=== PATIENT | male | born 1935 | race Caucasian/White ===

== ENCOUNTER → 2016-11-16 | Outpatient (CLI) | payer MEDICARE | LOC: OD 15:43 | PROVIDERS: ATTEND Family Medicine | DX: J44.1 Chronic obstructive pulmonary disease with (acute) exacerbation (principal) | CPT/HCPCS: 71020 ==

== ENCOUNTER → 2016-11-30 | Outpatient (CLI) | payer MEDICARE | LOC: OD 14:06 | PROVIDERS: ATTEND Family Medicine | DX: M54.5 Low back pain (principal); M54.6 Pain in thoracic spine | CPT/HCPCS: 72070; 72110 ==

== ENCOUNTER 2016-12-15 13:20 | Inpatient (IN) | payer MEDICARE ==
--- NOTE | 2016-12-15 13:32 | ER Document Report ---
ED Respiratory Problem - General Mode of Arrival: Medic Information source: Patient, Emergency Med Personnel TRAVEL OUTSIDE OF THE [place] IN LAST 30 DAYS: No - HPI Patient complains to provider of: Short of breath Duration: Worse/persistent Context: Hx COPD Short of Breath: Moderate <VITALIY MELLO - Last Filed: 12/15/16 14:04> <RAJWINDER DAUGHERTY - Last Filed: 12/15/16 17:38> - General Stated Complaint: SHORTNESS OF BREATH Time Seen by Provider: 12/15/16 13:31 Notes: Patient is an 81-year-old male who presents to the emergency department today with complaints of shortness of breath and a cough. EMS reports they were called out for failure to thrive. Patient reports that he lives with his however EMS states that the patient's two months ago. Patient denies any pain at this time. (VITALIY MELLO) - Related Data Allergies/Adverse Reactions: No Known Allergies Allergy (Unverified 12/15/16 14:38) Home Medications: Current Home Medications Albuterol Sulfate [Albuterol Sulfate 2.5mg/3 mL] 1 vial IH Q4 PRN 12/15/16 [ History] Digoxin [Lanoxin 0.125 mg Tablet] 0.125 mg PO DAILY 12/15/16 [History] Diltiazem HCl [Diltiazem ER] 120 mg PO QPM 12/15/16 [History] Ergocalciferol (Vitamin D2) [Vitamin D2] 50,000 unit PO Q7D 12/15/16 [History] Finasteride [Proscar 5 mg Tablet] 5 mg PO DAILY 12/15/16 [History] Hydrocodone/Acetaminophen [[place] 5-325 Tablet] 1 tab PO Q8HP PRN 12/15/16 [ History] Levothyroxine Sodium [Synthroid] 125 mcg PO DAILY 12/15/16 [History] Lisinopril [Prinivil 5 mg Tablet] 5 mg PO DAILY 12/15/16 [History] Magnesium Oxide [Magnesium] 400 mg PO DAILY 12/15/16 [History] Mirtazapine [Remeron 15 mg Tablet] 15 mg PO QHS 12/15/16 [History] Tamsulosin HCl [Flomax 0.4 mg Cap.sr] 0.4 mg PO DAILY 12/15/16 [History] Warfarin Sodium [Coumadin 4 mg Tablet] 4 mg PO QHS 12/15/16 [History] Past Medical History - General Information source: Patient - Social History Smoking Status: Former Smoker Cigarette use (# per day): No Family History: Reviewed & Not Pertinent Pulmonary Medical History: Reports: Hx COPD Surgical Hx: Negative <VITALIY MELLO - Last Filed: 12/15/16 14:04> Review of Systems - Review of Systems Constitutional: No symptoms reported EENT: No symptoms reported Cardiovascular: No symptoms reported Respiratory: See HPI, Cough, Short of breath Gastrointestinal: No symptoms reported Genitourinary: No symptoms reported Male Genitourinary: No symptoms reported Musculoskeletal: No symptoms reported Skin: No symptoms reported Hematologic/Lymphatic: No symptoms reported Neurological/Psychological: No symptoms reported -: Yes All other systems reviewed and negative <VITALIY MELLO - Last Filed: 12/15/16 14:04> Physical Exam - Vital signs Interpretation: Hypotensive, Tachycardic, Hypoxic - General General appearance: Alert, Other - cachectic In distress: Moderate - HEENT Head: Normocephalic, Atraumatic Eyes: Normal Conjunctiva: Normal Cornea: Normal Mouth/Lips: Normal Mucous membranes: Dry - Respiratory Respiratory status: Respiratory distress, Tachypnea Breath sounds: Decreased air movement, Rales - R base, Wheezing - b/l - Cardiovascular Rhythm: Regular, Tachycardia - Abdominal Inspection: Normal Tenderness: Nontender - Back Back: Normal - Extremities General upper extremity: Normal inspection, Normal ROM General lower extremity: Normal inspection, Normal ROM - Neurological Cognition: Normal Orientation: No: Disoriented to person Danny Coma Scale Eye Opening: Spontaneous Danny Coma Scale Verbal: Oriented Danny Coma Scale Motor: Obeys Commands [place] Coma Scale Total: 15 Motor strength normal: LUE, RUE, LLE, RLE - Skin Skin Temperature: Warm Skin Moisture: Dry Skin Color: Normal <RAJWINDER DAUGHERTY - Last Filed: 12/15/16 17:38> - Vital signs Vitals: Resp BP Pulse Ox 14 129/114 H 95 12/15/16 13:35 12/15/16 13:35 12/15/16 13:35 Course - Laboratory Result Diagrams: 12/15/16 13:45 12/15/16 13:45 <VITALIY MELLO - Last Filed: 12/15/16 14:04> - Laboratory Result Diagrams: 12/15/16 13:45 12/15/16 13:45 <RAJWINDER DAUGHERTY - Last Filed: 12/15/16 17:38> - Re-evaluation Re-evalutation: 12/15/16 Patient is an 81-year-old male who was brought in for difficulty breathing and not appearing well according to his daughter. Daughter states that they were just at her [id number] today. Patient's 2 months ago and he has been expressing not wanting to live anymore. Patient has not been eating or drinking. Patient has had a cough recently. Patient presents with tachycardia, hypotensive, and productive cough. Symptoms are consistent with pneumonia and dehydration. Patient has been fluid resuscitated and given a nebulizer for wheezing. Patient was discussed with the hospitalist service who will admit the patient. Daughter would like him to be placed. She would also like him to be comfort measures. Patient is in fair condition at the time of admission to a telemetry bed. Of note, patient's INR and PT came back elevated. Patient has been taking Coumadin regularly. Vitamin K has been ordered. No evidence of bleeding at this time. (RAJWINDER DAUGHERTY) - Vital Signs Vital signs: Temp Pulse Resp BP Pulse Ox 97.6 F 125 H 17 97/61 L 95 12/15/16 16:50 12/15/16 16:50 12/15/16 16:50 12/15/16 16:50 12/15/16 16:50 - Laboratory Laboratory results interpreted by me: 12/15/16 12/15/16 12/15/16 13:45 13:45 14:00 WBC 13.3 H RBC 4.13 L Hgb 12.8 L RDW 14.6 H Seg Neutrophils % 83.2 H Lymphocytes % 8.9 L Absolute Neutrophils 11.1 H PT INR VBG pH Carbon Dioxide 32 H BUN 53 H Creatinine 1.55 H Est GFR ( Amer) 52 L Est GFR (Non-Af Amer) 43 L Glucose 185 H Lactic Acid 2.8 H Calcium 13.3 H* Alkaline Phosphatase 137 H Total Protein 5.7 L Albumin 2.8 L 12/15/16 12/15/16 14:00 14:40 WBC RBC Hgb RDW Seg Neutrophils % Lymphocytes % Absolute Neutrophils PT 60.3 H* INR 6.63 H* VBG pH 7.46 H Carbon Dioxide BUN Creatinine Est GFR ( Amer) Est GFR (Non-Af Amer) Glucose Lactic Acid Calcium Alkaline Phosphatase Total Protein Albumin Critical Care Note - Critical Care Note Total time excluding time spent on procedures (mins): 60 - Duration and management of respiratory distress, hypotension, COPD exacerbation, supratherapeutic INR, coordination of admission, counseling of family <RAJWINDER DAUGHERTY - Last Filed: 12/15/16 17:38> Discharge <VITALIY MELLO - Last Filed: 12/15/16 14:04> - Discharge Admitting Provider: Hospitalist - [facility] Admitted: Telemetry <RAJWINDER DAUGHERTY - Last Filed: 12/15/16 17:38> - Discharge Clinical Impression: Hypoxia, Hypovolemia, Respiratory distress, SIRS (systemic inflammatory response syndrome), Supratherapeutic international normalized ratio (INR) Pneumonia Qualifiers: Pneumonia type: aspiration pneumonia Aspiration pneumonia type: unspecified Laterality: right Lung location: lower lobe of lung Qualified Code(s): J69.0 - Pneumonitis due to inhalation of food and vomit COPD (chronic obstructive pulmonary disease) Qualifiers: COPD type: COPD with acute exacerbation Qualified Code(s): J44.1 - Chronic obstructive pulmonary disease with (acute) exacerbation Condition: Fair Disposition: ADMITTED INPATIENT Scribe Attestation: 12/15/16 17:38 I personally performed the services described in the documentation, reviewed and edited the documentation which was dictated to the scribe in my presence, and it accurately records my words and actions. (RAJWINDER DAUGHERTY) Scribe Documentation - Scribe Written by Rae:: Rae Magaña, 12/15/16 1407 acting as scribe for :: Etelvina <VITALIY MELLO - Last Filed: 12/15/16 14:04>
[2016-12-15 14:01] LABS: ABSOLUTE LYMPHOCYTES (AUTO) 1.2 10^3/uL (0.5-4.7); ABSOLUTE NEUT (AUTO) 11.1 10^3/uL (1.7-8.2); BASOPHILS % (AUTO) 0.1 % (0-2); HEMATOCRIT 39.1 % (37.9-51.0); HEMOGLOBIN 12.8 g/dL (13.5-17.0); HGB HCT DIFFERENCE -0.7; LYMPHOCYTES % (AUTO) 8.9 % (13-45); MEAN CORPUSCULAR HEMOGLOBIN 30.9 pg (27.0-33.4); MEAN CORPUSCULAR HGB CONC 32.6 g/dL (32.0-36.0); MEAN CORPUSCULAR VOLUME 95 fl (80-97); MONOCYTES % (AUTO) 7.8 % (3-13); RED BLOOD COUNT 4.13 10^6/uL (4.35-5.55); RED CELL DISTRIBUTION WIDTH 14.6 % (11.5-14.0); SEGMENTED NEUTROPHILS % (AUTO) 83.2 % (42-78); WHITE BLOOD COUNT 13.3 10^3/uL (4.0-10.5)
[2016-12-15 14:16] LABS: ALANINE AMINOTRANSFERASE 31 U/L (21-72); ALBUMIN 2.8 g/dL (3.5-5.0); ALKALINE PHOSPHATASE 137 U/L (38-126); ANION GAP 7 (5-19); ASPARTATE AMINO TRANSFERASE 25 U/L (17-59); BILIRUBIN,DIRECT 0.4 mg/dL (0.0-0.4); BILIRUBIN,TOTAL 0.7 mg/dL (0.2-1.3); BLOOD UREA NITROGEN 53 mg/dL (7-20); CARBON DIOXIDE 32 mmol/L (22-30); CHLORIDE 99 mmol/L (98-107); CREATININE RESULT 1.55 mg/dL (0.52-1.25); GLUCOSE 185 mg/dL (75-110); POTASSIUM 4.5 mmol/L (3.6-5.0); SODIUM 138.2 mmol/L (137-145); TOTAL PROTEIN 5.7 g/dL (6.3-8.2)
[2016-12-15] MEDS ORDERED: IPRATROPIUM/ALBUTEROL 0.5-2.5 MG/3 ML AMPUL NEB ONE (14:20)
--- NOTE | 2016-12-15 14:20 | RADIOLOGY REPORT (SQ) ---
EXAM DESCRIPTION: CHEST SINGLE VIEW COMPLETED DATE/TIME: 12/15/2016 1:55 pm REASON FOR STUDY: hypotension, sob COMPARISON: 11/16/2016 EXAM PARAMETERS: NUMBER OF VIEWS: One view. TECHNIQUE: Single frontal radiographic view of the chest acquired. RADIATION DOSE: NA LIMITATIONS: None. FINDINGS: LUNGS AND PLEURA: The lungs are hyperexpanded. There are what appear to be chronic inters titial changes in the right lung base. A superimposed infiltrate cannot be ruled out in the right ba se. MEDIASTINUM AND HILAR STRUCTURES: No masses. Contour normal. HEART AND VASCULAR STRUCTURES: Heart normal in size. Normal vasculature. BONES: No osseous lesions are appreciated. HARDWARE: Rods are present in thoracolumbar spine. OTHER: No other significant finding. IMPRESSION: There are chronic lung changes. A pneumonia cannot be ruled out in the right lower lobe . TECHNICAL DOCUMENTATION: JOB ID: [id number]
[2016-12-15 14:33] LABS: VENOUS BLOOD BASE EXCESS 6.2 mmol/L; VENOUS BLOOD HCO3 30.8 mmol/L (20-32); VENOUS BLOOD PCO2 44.2 mmHg (35-63); VENOUS BLOOD PH 7.46 (7.30-7.42)
[2016-12-15 14:46] LABS: CALCIUM 13.3 mg/dL (8.4-10.2)
[2016-12-15] MEDS ORDERED: CEFEPIME 1 GM/D5W RTU 50 ML IV ONE (15:16)
[2016-12-15 15:29] LABS: PROTHROMBIN TIME 60.3 SEC (11.4-15.4)
[2016-12-15] MEDS ORDERED: PHYTONADIONE 5 MG TABLET PO ONE (15:30)
[2016-12-15] MEDS ORDERED: IPRATROPIUM/ALBUTEROL 0.5-2.5 MG/3 ML AMPUL NEB PRN (15:37)
[2016-12-15] MEDS ORDERED: ACETAMINOPHEN 325 MG TABLET PO PRN (15:37)
[2016-12-15] MEDS ORDERED: NORMAL SALINE 1000 ML 1,000 ML IV PRN (15:37)
[2016-12-15] MEDS: IPRATROPIUM/ALBUTEROL 0.5-2.5 MG/3 ML AMPUL NEB SCH ×2 (16:19→23:50)
--- NOTE | 2016-12-15 16:44 | PDOC H&P ---
History of Present Illness Admission Date/PCP: 12/15/16 16:03 YESY AGUILAR DO Patient complains of: Shortness of breath and worsening dyspnea History of Present Illness: CORY MILIAN is a 81 year old male, presents to [facility] emergency room via EMS. Patient has a past medical history according to his daughter of COPD on home oxygen therapy, atrial fibrillation, essential hypertension, severe caloric malnutrition, and failure to thrive. Much of the history is obtained from patient's daughter who is at his bedside. Patient has new history of confusion and incontinence over the last 2 weeks. Daughter states he came to live with her 2 months ago from [place] after her stepmother . Patient has stated numerous times he wishes to also. He has refused to eat and drinks very little. She reports at least a 20- 30 pound weight loss over the last 2 months. She has taken him to see Dr. Aguilar who is attempted Remeron therapy to increase his appetite. This had no positive effect at the present time. She states she began being incontinent over the last 1-2 weeks. He had refused prior attempts by family to have him hospitalized prior to the day. She states she has had a worsening productive cough and dyspnea over the last week. Medication list supplied by family have not been verified by pharmacy Past Medical History Cardiac Medical History: Reports: Atrial Fibrillation, Hyperlipidema - There is 9 to in the ICU and I mean it is truly any of her heart and to be, Hypertension , Heart Murmur Pulmonary Medical History: Reports: Chronic Obstructive Pulmonary Disease (COPD) EENT Medical History: Reports: None - Is not well unable to 99 independent Neurological Medical History: Reports: None Renal/ Medical History: Reports: None - They have been removed because the Malignancy Medical History: Reports: None - burn is trying to compensate for lactulose GI Medical History: Reports: Gastroesophageal Reflux Disease - is no cephalic little thing to the Musculoskeltal Medical History: Reports: None Skin Medical History: Reports: None Psychiatric Medical History: Reports: Dementia, Tobacco Dependency Hematology: Reports: Bleeding Tendencies Infectious Medical History: Reports: Other Social History Information Source: Relative Lives with: Family Smoking Status: Former Smoker Number of Years Smokin Last Time Smoked: 3 months ago Frequency of Alcohol Use: Rare Hx Recreational Drug Use: No Hx Prescription Drug Abuse: No - Advance Directive Resuscitation Status: Do Not Resuscitate Surrogate healthcare decision maker:: DaughterAmi [phone] Family History Family History: COPD, Hypertension Parental Family History Reviewed: Yes Children Family History Reviewed: Yes Sibling(s) Family History Reviewed.: Yes Medication/Allergy Allergies/Adverse Reactions: No Known Allergies Allergy (Unverified 12/15/16 14:38) Review of Systems ROS unobtainable: Due to mental status Physical Exam Vital Signs: Temp Pulse Resp BP Pulse Ox 20 109/40 L 96 12/15/16 14:01 12/15/16 14:01 12/15/16 14:01 General appearance: PRESENT: no acute distress, thin, well-developed Head exam: PRESENT: atraumatic, normocephalic Eye exam: PRESENT: conjunctiva pale, PERRLA Ear exam: PRESENT: normal external ear exam Mouth exam: PRESENT: dry mucosa, neck supple, tongue midline Teeth exam: PRESENT: edentulous Neck exam: PRESENT: full ROM Respiratory exam: PRESENT: crackles, symmetrical, unlabored - right base Cardiovascular exam: PRESENT: RRR. ABSENT: diastolic murmur, rubs, systolic murmur Pulses: PRESENT: normal dorsalis pedis pul Vascular exam: PRESENT: normal capillary refill GI/Abdominal exam: PRESENT: normal bowel sounds, soft. ABSENT: distended, guarding, mass, organolmegaly, rebound, tenderness Rectal exam: PRESENT: deferred Extremities exam: PRESENT: full ROM. ABSENT: calf tenderness, clubbing, pedal edema Neurological exam: PRESENT: altered, CN II-XII grossly intact. ABSENT: motor sensory deficit Psychiatric exam: PRESENT: flat affect Skin exam: PRESENT: abrasion, dry, warm, other - forearms with multiple echymotic spots Results Impressions: Chest X-Ray 12/15/16 13:31 IMPRESSION: There are chronic lung changes. A pneumonia cannot be ruled out in the right lower lobe. Assessment & Plan - Diagnosis (1) SIRS (systemic inflammatory response syndrome) Is this a current diagnosis for this admission?: YesPlan: Patient with fever, hypotension, tachypnea, and lactate of 2.8. Hypotension resolved with IV fluid bolus. Patient with right lower lobe pneumonia (2) Acute and chronic respiratory failure with hypoxia Is this a current diagnosis for this admission?: YesPlan: Patient with oxygen SPO2 of 87% on 2l/min, increased to 4l/min with SPO2 95%. No hypercapnea noted on VBG. Will treat with IV antibiotics, nebulizer treatments and steroid (3) LISA (acute kidney injury) Is this a current diagnosis for this admission?: YesPlan: Acute kidney injury most likely secondary to dehydration and prerenal hypovolemia. Patient was given IV fluid bolus by the ED physician continue with IV hydration. (4) Atrial fibrillation Qualifiers: Atrial fibrillation type: paroxysmal Qualified Code(s): I48.0 - Paroxysmal atrial fibrillation Is this a current diagnosis for this admission?: YesPlan: Patient with an INR of 6.4 at the present time on warfarin. He was given vitamin K p.o. by the ED physician. We will continue to hold Coumadin and allow his INR to drift downward. He presently is normal sinus rhythm 70s-80s. (5) Severe protein-calorie malnutrition Is this a current diagnosis for this admission?: YesPlan: Regular diet with protein supplements. Patient has refused to eat despite appetite stimulants by PCP. (6) Pneumonia Qualifiers: Aspiration pneumonia type: unspecified Laterality: right Lung location: lower lobe of lung Is this a current diagnosis for this admission?: YesPlan: Broad spectrum antibiotics pending culture results (7) COPD (chronic obstructive pulmonary disease) Qualifiers: COPD type: COPD with acute exacerbation Qualified Code(s): J44.1 - Chronic obstructive pulmonary disease with (acute) exacerbation Is this a current diagnosis for this admission?: YesPlan: Nebulizer, IV steroids and abx (8) Goals of care, counseling/discussion Is this a current diagnosis for this admission?: YesPlan: Discussed with daughter and son in law goals of care for patient. They wish DNR , possible comfort care should his condition decline further and assisted placement - Time Time Spent: 50 to 70 Minutes Critical Time spent with patient: 25-34 minutes Medications reviewed and adjusted accordingly: Yes Anticipated discharge: SNF
[2016-12-15] MEDS ORDERED: CEFEPIME 2 GM/D5W RTU 2 GM/50 ML RTUPB IV ONE (17:00)
[2016-12-15] MEDS: LEVOFLOXACIN 750 MG/D5W RTU 750 MG/150 ML RTUPB IV SCH (17:31)
[2016-12-15 18:26] LABS: APPEARANCE,URINE SLIGHTLY-CLOUDY; BILIRUBIN,URINE NEGATIVE (NEGATIVE); GLUCOSE, URINE NEGATIVE (NEGATIVE); KETONES,URINE NEGATIVE (NEGATIVE); LEUKOCYTE ESTERASE,URINE MODERATE (NEGATIVE); NITRITE,URINE NEGATIVE (NEGATIVE); PROTEIN,URINE NEGATIVE (NEGATIVE); UROBILINOGEN,URINE NEGATIVE mg/dL (<2.0)
--- NOTE | 2016-12-15 18:34 | EKG REPORT ---
SEVERITY:- ABNORMAL ECG - ATRIAL FIBRILLATION BORDERLINE RIGHT AXIS DEVIATION DIFFUSE NONSPECIFIC ST-T CHANGES- LEADS : Confirmed by: Naun Mandujano MD 15-Dec-2016 18:32:51
[2016-12-15] MEDS: GUAIFENESIN 600 MG TABLET.SA PO SCH (21:32)
[2016-12-15] MEDS: FAMOTIDINE 20 MG TABLET PO SCH (21:32)
[2016-12-16 05:36] LABS: HEMATOCRIT 31.4 % (37.9-51.0); HGB HCT DIFFERENCE 0.1; MEAN CORPUSCULAR HEMOGLOBIN 31.4 pg (27.0-33.4); MEAN CORPUSCULAR HGB CONC 33.4 g/dL (32.0-36.0); MEAN CORPUSCULAR VOLUME 94 fl (80-97); RED BLOOD COUNT 3.34 10^6/uL (4.35-5.55); RED CELL DISTRIBUTION WIDTH 14.3 % (11.5-14.0); WHITE BLOOD COUNT 13.9 10^3/uL (4.0-10.5)
[2016-12-16] MEDS ORDERED: CEFEPIME 2 GM/D5W RTU 2 GM/50 ML RTUPB IV ONE (05:47)
[2016-12-16 05:54] LABS: HEMOGLOBIN 10.5 g/dL (13.5-17.0)
[2016-12-16] MEDS ORDERED: CEFEPIME 2 GM/D5W RTU 2 GM/50 ML RTUPB IV SCH (06:00)
[2016-12-16 06:05] LABS: ANION GAP 5 (5-19); BLOOD UREA NITROGEN 48 mg/dL (7-20); CARBON DIOXIDE 27 mmol/L (22-30); CHLORIDE 102 mmol/L (98-107); GLUCOSE 110 mg/dL (75-110); POTASSIUM 4.4 mmol/L (3.6-5.0); SODIUM 134.4 mmol/L (137-145)
[2016-12-16 06:16] LABS: CALCIUM 12.7 mg/dL (8.4-10.2)
[2016-12-16] MEDS ORDERED: HYDROCODONE/ACETAMINOPHEN 5-325 MG TABLET PO PRN (07:00)
[2016-12-16] MEDS: IPRATROPIUM/ALBUTEROL 0.5-2.5 MG/3 ML AMPUL NEB SCH ×3 (08:13→23:31)
[2016-12-16] MEDS ORDERED: CALCITONIN,SALMON,SYNTHETIC 400 UNIT/2 ML VIAL IM ONE (09:00)
[2016-12-16] MEDS ORDERED: (PENDING PHARMACY ID) (Magnesium Oxide [Magnesium] 400 MG) PO SCH (10:00)
[2016-12-16] MEDS ORDERED: LEVOFLOXACIN 500 MG/D5W RTU 100 ML IV SCH (10:00)
[2016-12-16] MEDS ORDERED: (PENDING PHARMACY ID) (Levothyroxine Sodium [Synthroid] 125 MCG) PO SCH (10:00)
[2016-12-16] MEDS: MEGESTROL ACETATE SUSP 400 MG/10 ML UDCUP PO SCH (11:38)
[2016-12-16] MEDS: TAMSULOSIN HCL 0.4 MG CAP.SR.24H PO SCH (11:38)
[2016-12-16] MEDS: FAMOTIDINE 20 MG TABLET PO SCH ×2 (11:38→21:16)
[2016-12-16] MEDS: LEVOTHYROXINE SODIUM 0.1 MG TABLET PO SCH (11:38)
[2016-12-16] MEDS: MAGNESIUM OXIDE 400 MG TABLET PO SCH (11:38)
[2016-12-16] MEDS: FINASTERIDE 5 MG TABLET PO SCH (11:38)
[2016-12-16] MEDS: DIGOXIN 0.125 MG TABLET PO SCH (11:38)
[2016-12-16] MEDS: LEVOTHYROXINE SODIUM 0.025 MG TABLET PO SCH (11:38)
[2016-12-16] MEDS: LISINOPRIL 5 MG TABLET PO SCH (11:38)
[2016-12-16] MEDS: GUAIFENESIN 600 MG TABLET.SA PO SCH ×2 (11:38→21:16)
--- NOTE | 2016-12-16 16:21 | PDOC PROGRESS REPORT ---
Subjective Progress Note for:: 12/16/16 Subjective:: Patient is seen on morning rounds. He is more awake and alert this morning. He is able to answer questions appropriately. He is not short of breath at rest. He has some dyspnea with exertion. He has not improved cough. He denies chest pain, dizziness or dyspnea. Denies any nausea, vomiting or diarrhea. He states he has no dentures for him to eat because of this. He was noted to have problems swallowing by nursing. He was evaluated by speech therapy for postpharyngeal aspiration of all substances. He denies any significant arthralgias or myalgias Physical Exam Vital Signs: Temp Pulse Resp BP Pulse Ox 97.5 F 64 16 87/65 L 99 12/16/16 11:53 12/16/16 14:00 12/16/16 11:53 12/16/16 11:53 12/16/16 11:53 Intake & Output 12/15/16 12/16/16 12/17/16 06:59 06:59 06:59 Intake Total 2079 Balance 2079 Weight 50 kg General appearance: PRESENT: no acute distress, thin, well-developed Head exam: PRESENT: atraumatic, normocephalic Eye exam: PRESENT: conjunctiva pale, PERRLA Ear exam: PRESENT: normal external ear exam Mouth exam: PRESENT: moist, neck supple, tongue midline Teeth exam: PRESENT: edentulous Neck exam: ABSENT: carotid bruit, JVD, lymphadenopathy, thyromegaly Respiratory exam: PRESENT: crackles, decreased breath sounds - right base, symmetrical, unlabored. ABSENT: rales, rhonchi, wheezes Cardiovascular exam: PRESENT: RRR. ABSENT: diastolic murmur, rubs, systolic murmur Pulses: PRESENT: normal dorsalis pedis pul Vascular exam: PRESENT: normal capillary refill GI/Abdominal exam: PRESENT: normal bowel sounds, soft. ABSENT: distended, guarding, mass, organolmegaly, rebound, tenderness Rectal exam: PRESENT: deferred Extremities exam: PRESENT: full ROM. ABSENT: calf tenderness, clubbing, pedal edema Musculoskeletal exam: PRESENT: full ROM, normal inspection Neurological exam: PRESENT: alert, awake, oriented to person, oriented to place , oriented to time, oriented to situation, CN II-XII grossly intact. ABSENT: motor sensory deficit Psychiatric exam: PRESENT: flat affect Skin exam: PRESENT: dry, intact, warm. ABSENT: cyanosis, rash Results Laboratory Results: 12/16/16 04:30 12/16/16 04:30 12/15/16 12/15/16 12/16/16 17:35 18:32 04:30 WBC 13.9 H RBC 3.34 L Hgb 10.5 L D Hct 31.4 L MCV 94 MCH 31.4 MCHC 33.4 RDW 14.3 H Plt Count 226 Sodium Potassium Chloride Carbon Dioxide Anion Gap BUN Creatinine Est GFR ( Amer) Est GFR (Non-Af Amer) Glucose Lactic Acid 2.7 H Calcium Urine Color YELLOW Urine Appearance SLIGHTLY-CLOUDY Urine pH 6.0 Ur Specific [place] 1.010 Urine Protein NEGATIVE Urine Glucose (UA) NEGATIVE Urine Ketones NEGATIVE Urine Blood NEGATIVE Urine Nitrite NEGATIVE Ur Leukocyte Esterase MODERATE H Urine WBC (Auto) 64 Urine RBC (Auto) 2 12/16/16 04:30 WBC RBC Hgb Hct MCV MCH MCHC RDW Plt Count Sodium 134.4 L Potassium 4.4 Chloride 102 Carbon Dioxide 27 Anion Gap 5 BUN 48 H Creatinine 1.30 H Est GFR ( Amer) > 60 Est GFR (Non-Af Amer) 53 L Glucose 110 Lactic Acid Calcium 12.7 H* Urine Color Urine Appearance Urine pH Ur Specific [place] Urine Protein Urine Glucose (UA) Urine Ketones Urine Blood Urine Nitrite Ur Leukocyte Esterase Urine WBC (Auto) Urine RBC (Auto) Impressions: Chest X-Ray 12/15/16 13:31 IMPRESSION: There are chronic lung changes. A pneumonia cannot be ruled out in the right lower lobe. Assessment & Plan - Diagnosis (1) SIRS (systemic inflammatory response syndrome) Is this a current diagnosis for this admission?: YesPlan: Hypotension and tachycardia have resolved. Patient with right lower lobe pneumonia (2) Acute and chronic respiratory failure with hypoxia Is this a current diagnosis for this admission?: YesPlan: Patient with oxygen SPO2 of 87% on 2l/min, increased to 4l/min with SPO2 95%. No hypercapnea noted on VBG. Will treat with IV antibiotics, nebulizer treatments and steroid (3) LISA (acute kidney injury) Is this a current diagnosis for this admission?: YesPlan: Acute kidney injury most likely secondary to dehydration and prerenal hypovolemia. Patient was given IV fluid bolus by the ED physician continue with IV hydration. (4) Atrial fibrillation Qualifiers: Atrial fibrillation type: paroxysmal Qualified Code(s): I48.0 - Paroxysmal atrial fibrillation Is this a current diagnosis for this admission?: YesPlan: Patient with an INR of 6.4 at the present time on warfarin. He was given vitamin K p.o. by the ED physician. We will continue to hold Coumadin and allow his INR to drift downward. He presently is normal sinus rhythm 70s-80s. (5) Severe protein-calorie malnutrition Is this a current diagnosis for this admission?: YesPlan: Regular diet with protein supplements. Patient has refused to eat despite appetite stimulants by PCP. (6) Pneumonia Qualifiers: Pneumonia type: aspiration pneumonia Aspiration pneumonia type: unspecified Laterality: right Lung location: lower lobe of lung Qualified Code(s): J69.0 - Pneumonitis due to inhalation of food and vomit Is this a current diagnosis for this admission?: YesPlan: Broad spectrum antibiotics pending culture results (7) COPD (chronic obstructive pulmonary disease) Qualifiers: COPD type: COPD with acute exacerbation Qualified Code(s): J44.1 - Chronic obstructive pulmonary disease with (acute) exacerbation Is this a current diagnosis for this admission?: YesPlan: Nebulizer, IV steroids and abx (8) Goals of care, counseling/discussion Is this a current diagnosis for this admission?: YesPlan: Discussed with daughter and son in law goals of care for patient. They wish DNR , possible comfort care should his condition decline further and fci placement (9) Hypercalcemia Is this a current diagnosis for this admission?: Yes - Time Time Spent with patient: 25-34 minutes Critical Time spent with patient: 15-24 minutes Medications reviewed and adjusted accordingly: Yes Anticipated discharge: SNF
[2016-12-16] MEDS ORDERED: (PENDING PHARMACY ID) (Diltiazem Hcl [Diltiazem 24hr Er] 120 MG) PO SCH (18:00)
[2016-12-16] MEDS: DILTIAZEM HCL 120 MG CAP.SR.24H PO SCH (18:02)
[2016-12-16] MEDS: CEFEPIME HCL 2 GM in DEXTROSE 5%-WATER 50 ML IV SCH (18:05)
[2016-12-16] MEDS ORDERED: VANCOMYCIN HCL 0 MG in DEXTROSE 5%-WATER 250 ML IV NR (21:00)
[2016-12-16] MEDS: NORMAL SALINE 1000 ML 1,000 ML IV SCH ×2 (21:16→22:19)
[2016-12-16] MEDS: MIRTAZAPINE 15 MG TABLET PO SCH (21:16)
[2016-12-16] MEDS ORDERED: VANCOMYCIN HCL 750 MG in DEXTROSE 5%-WATER 250 ML IV ONE (22:00)
[2016-12-17] MEDS: NORMAL SALINE 1000 ML 1,000 ML IV SCH (00:26)
[2016-12-17] MEDS: CEFEPIME HCL 2 GM in DEXTROSE 5%-WATER 50 ML IV SCH ×2 (06:24→17:19)
[2016-12-17] MEDS ORDERED: VANCOMYCIN HCL 0 MG in DEXTROSE 5%-WATER 250 ML IV NR (07:45)
[2016-12-17] MEDS: IPRATROPIUM/ALBUTEROL 0.5-2.5 MG/3 ML AMPUL NEB SCH ×3 (08:40→23:39)
[2016-12-17] MEDS: MEGESTROL ACETATE SUSP 400 MG/10 ML UDCUP PO SCH (09:15)
[2016-12-17] MEDS: DIGOXIN 0.125 MG TABLET PO SCH (09:16)
[2016-12-17] MEDS: FAMOTIDINE 20 MG TABLET PO SCH ×2 (09:17→22:23)
[2016-12-17] MEDS: FINASTERIDE 5 MG TABLET PO SCH (09:17)
[2016-12-17] MEDS: GUAIFENESIN 600 MG TABLET.SA PO SCH ×2 (09:17→22:23)
[2016-12-17] MEDS: LEVOTHYROXINE SODIUM 0.1 MG TABLET PO SCH (09:17)
[2016-12-17] MEDS: LEVOTHYROXINE SODIUM 0.025 MG TABLET PO SCH (09:17)
[2016-12-17] MEDS: MAGNESIUM OXIDE 400 MG TABLET PO SCH (09:18)
[2016-12-17] MEDS: LISINOPRIL 5 MG TABLET PO SCH (09:18)
[2016-12-17] MEDS: TAMSULOSIN HCL 0.4 MG CAP.SR.24H PO SCH (09:18)
[2016-12-17] MEDS ORDERED: NORMAL SALINE 1000 ML 1,000 ML IV PRN (10:08)
[2016-12-17 10:11] LABS: PROTHROMBIN TIME 26.4 SEC (11.4-15.4)
[2016-12-17] MEDS ORDERED: FUROSEMIDE INJ/PF 20 MG/2 ML SDV IV ONE (11:00)
--- NOTE | 2016-12-17 12:59 | PDOC PROGRESS REPORT ---
Subjective Progress Note for:: 12/17/16 Subjective:: Patient is seen on morning rounds. He is more awake and alert this morning. He is able to answer questions appropriately. He is not short of breath at rest. He has some dyspnea with exertion. He has not improved cough. He denies chest pain, dizziness or dyspnea. Denies any nausea, vomiting or diarrhea. He states he has no dentures for him to eat because of this. He was noted to have problems swallowing by nursing. He was evaluated by speech therapy for postpharyngeal aspiration of all substances. He denies any significant arthralgias or myalgias Physical Exam Vital Signs: Temp Pulse Resp BP Pulse Ox 97.3 F 67 18 124/89 H 97 12/17/16 08:00 12/17/16 08:40 12/17/16 08:40 12/17/16 08:00 12/17/16 08:40 Intake & Output 12/16/16 12/17/16 12/18/16 06:59 06:59 06:59 Intake Total 2079 6870 Balance 2079 6870 Weight 50 kg 55.4 kg General appearance: PRESENT: no acute distress, thin, well-developed Head exam: PRESENT: atraumatic, normocephalic Eye exam: PRESENT: conjunctiva pale Ear exam: PRESENT: normal external ear exam Mouth exam: PRESENT: moist, tongue midline Neck exam: PRESENT: JVD Respiratory exam: PRESENT: crackles - bilaterally, rhonchi, symmetrical, tachypnea Cardiovascular exam: PRESENT: RRR. ABSENT: diastolic murmur, rubs, systolic murmur Pulses: PRESENT: normal carotid pulses, normal radial pulses GI/Abdominal exam: PRESENT: diminished bowel sounds Rectal exam: PRESENT: deferred Extremities exam: PRESENT: full ROM. ABSENT: calf tenderness, clubbing, pedal edema Neurological exam: PRESENT: alert, altered, oriented to person, CN II-XII grossly intact Psychiatric exam: PRESENT: anxious Skin exam: PRESENT: dry, intact, warm. ABSENT: cyanosis, rash Results Laboratory Results: 12/16/16 04:30 12/16/16 04:30 12/15/16 17:35 Catheterized Urine Urine Culture - Final NO GROWTH 2 DAYS Impressions: Chest X-Ray 12/15/16 13:31 IMPRESSION: There are chronic lung changes. A pneumonia cannot be ruled out in the right lower lobe. Assessment & Plan - Diagnosis (1) SIRS (systemic inflammatory response syndrome) Is this a current diagnosis for this admission?: YesPlan: Hypotension and tachycardia have resolved. Patient with right lower lobe pneumonia. 2 out of 2 blood cultures positive for Gm positive cocci. Vancomycin added (2) Fluid volume excess Qualifiers: Hypervolemia type: other Qualified Code(s): E87.79 - Other fluid overload Is this a current diagnosis for this admission?: YesPlan: Patient given fluid bolus overnight due to positive blood cultures, no with mild respiratory distress due to fluid volume overload, Fluid decreased IV lasix 40 mg given with improvement (3) Acute and chronic respiratory failure with hypoxia Is this a current diagnosis for this admission?: YesPlan: Patient with oxygen SPO2 of 87% on 2l/min, increased to 4l/min with SPO2 95%. No hypercapnea noted on VBG. Will treat with IV antibiotics, nebulizer treatments and steroid (4) LISA (acute kidney injury) Is this a current diagnosis for this admission?: YesPlan: Acute kidney injury most likely secondary to dehydration and prerenal hypovolemia. Patient was given IV fluid bolus by the ED physician continue with IV hydration. (5) Atrial fibrillation Qualifiers: Atrial fibrillation type: paroxysmal Qualified Code(s): I48.0 - Paroxysmal atrial fibrillation Is this a current diagnosis for this admission?: YesPlan: Patient with an INR of 6.4 at the present time on warfarin. He was given vitamin K p.o. by the ED physician. We will continue to hold Coumadin and allow his INR to drift downward. He presently is normal sinus rhythm 70s-80s. (6) Severe protein-calorie malnutrition Is this a current diagnosis for this admission?: YesPlan: Regular diet with protein supplements. Patient has refused to eat despite appetite stimulants by PCP. (7) Pneumonia Qualifiers: Pneumonia type: aspiration pneumonia Aspiration pneumonia type: unspecified Laterality: right Lung location: lower lobe of lung Qualified Code(s): J69.0 - Pneumonitis due to inhalation of food and vomit Is this a current diagnosis for this admission?: YesPlan: Broad spectrum antibiotics. Blood cultures 2 out of 2 sets positive for gram positive cocci (8) COPD (chronic obstructive pulmonary disease) Qualifiers: COPD type: COPD with acute exacerbation Qualified Code(s): J44.1 - Chronic obstructive pulmonary disease with (acute) exacerbation Is this a current diagnosis for this admission?: YesPlan: Nebulizer, IV steroids and abx (9) Goals of care, counseling/discussion Is this a current diagnosis for this admission?: YesPlan: Discussed with daughter and son in law goals of care for patient. They wish DNR , possible comfort care should his condition decline further and parts counterman placement (10) Hypercalcemia Is this a current diagnosis for this admission?: Yes - Time Time Spent with patient: 25-34 minutes Critical Time spent with patient: 15-24 minutes Medications reviewed and adjusted accordingly: Yes
[2016-12-17] MEDS: DILTIAZEM HCL 120 MG CAP.SR.24H PO SCH (17:18)
[2016-12-17] MEDS: LEVOFLOXACIN 750 MG/D5W RTU 750 MG/150 ML RTUPB IV SCH (17:20)
[2016-12-17] MEDS ORDERED: VANCOMYCIN HCL 500 MG in DEXTROSE 5%-WATER 100 ML IV SCH (22:00)
[2016-12-17] MEDS: MIRTAZAPINE 15 MG TABLET PO SCH (22:23)
[2016-12-17] MEDS: VANCOMYCIN HCL 750 MG in DEXTROSE 5%-WATER 250 ML IV SCH (22:23)
[2016-12-18 05:16] LABS: HEMATOCRIT 33.6 % (37.9-51.0); HGB HCT DIFFERENCE -0.6; MEAN CORPUSCULAR HEMOGLOBIN 31.2 pg (27.0-33.4); MEAN CORPUSCULAR HGB CONC 32.8 g/dL (32.0-36.0); MEAN CORPUSCULAR VOLUME 95 fl (80-97); RED BLOOD COUNT 3.52 10^6/uL (4.35-5.55); WHITE BLOOD COUNT 18.1 10^3/uL (4.0-10.5)
[2016-12-18] MEDS: CEFEPIME HCL 2 GM in DEXTROSE 5%-WATER 50 ML IV SCH ×2 (05:22→20:17)
[2016-12-18 05:29] LABS: ANION GAP 8 (5-19); BLOOD UREA NITROGEN 42 mg/dL (7-20); CARBON DIOXIDE 24 mmol/L (22-30); CHLORIDE 104 mmol/L (98-107); CREATININE RESULT 1.13 mg/dL (0.52-1.25); GLUCOSE 73 mg/dL (75-110); POTASSIUM 3.2 mmol/L (3.6-5.0); SODIUM 136.4 mmol/L (137-145)
[2016-12-18 05:41] LABS: BASOPHILS % (MANUAL) 0 % (0-2); EOSINOPHILS % (MANUAL) 0 % (0-6); LYMPHOCYTES % (MANUAL) 4 % (13-45); TOTAL CELLS COUNTED 100
[2016-12-18 05:43] LABS: CALCIUM 12.5 mg/dL (8.4-10.2)
[2016-12-18 05:44] LABS: ANISOCYTOSIS SLIGHT; OVALOCYTES SLIGHT; TOXIC GRANULATION 1+
[2016-12-18] MEDS: IPRATROPIUM/ALBUTEROL 0.5-2.5 MG/3 ML AMPUL NEB SCH ×3 (08:22→23:52)
[2016-12-18] MEDS ORDERED: POTASSIUM CHLORIDE 10 MEQ TABLET.SA PO ONE (08:30)
[2016-12-18] MEDS ORDERED: CALCITONIN,SALMON,SYNTHETIC 400 UNIT/2 ML VIAL IM ONE (08:30)
[2016-12-18 08:50] LABS: PROTHROMBIN TIME 24.3 SEC (11.4-15.4)
[2016-12-18] MEDS: HALOPERIDOL LACTATE INJ 5 MG/1 ML VIAL IV PRN ×2 (08:59→15:23)
[2016-12-18] MEDS: TAMSULOSIN HCL 0.4 MG CAP.SR.24H PO SCH (09:01)
[2016-12-18] MEDS: RISPERIDONE 1 MG TABLET PO SCH ×2 (09:02→17:47)
[2016-12-18] MEDS: DIGOXIN 0.125 MG TABLET PO SCH (09:02)
[2016-12-18] MEDS: GUAIFENESIN 600 MG TABLET.SA PO SCH (09:02)
[2016-12-18] MEDS: MAGNESIUM OXIDE 400 MG TABLET PO SCH (09:02)
[2016-12-18] MEDS: FAMOTIDINE 20 MG TABLET PO SCH (09:03)
[2016-12-18] MEDS: MEGESTROL ACETATE SUSP 400 MG/10 ML UDCUP PO SCH (09:03)
[2016-12-18] MEDS: LEVOTHYROXINE SODIUM 0.1 MG TABLET PO SCH (09:03)
[2016-12-18] MEDS: LEVOTHYROXINE SODIUM 0.025 MG TABLET PO SCH (09:03)
[2016-12-18] MEDS: FINASTERIDE 5 MG TABLET PO SCH (09:03)
--- NOTE | 2016-12-18 11:21 | PDOC PROGRESS REPORT ---
Subjective Subjective:: Patient is seen on morning rounds. He became confused and agitated overnight. He is presently disoriented x 3 and hallucinating. He is not hypoxic or febrile. He has a congested cough still. He is not able to complete a review of systems due to his mentation. Physical Exam Vital Signs: Temp Pulse Resp BP Pulse Ox 97.8 F 78 18 130/69 H 97 12/18/16 08:00 12/18/16 08:28 12/18/16 08:28 12/18/16 08:00 12/18/16 08:28 Intake & Output 12/17/16 12/18/16 12/19/16 06:59 06:59 06:59 Intake Total 6871 2349 Balance 6871 2349 Weight 55.4 kg General appearance: PRESENT: no acute distress, thin, well-developed Head exam: PRESENT: atraumatic, normocephalic Eye exam: PRESENT: conjunctiva pale Ear exam: PRESENT: normal external ear exam Mouth exam: PRESENT: moist, tongue midline Teeth exam: PRESENT: edentulous Neck exam: ABSENT: carotid bruit, JVD, lymphadenopathy, thyromegaly Respiratory exam: PRESENT: rhonchi, symmetrical, unlabored Cardiovascular exam: PRESENT: irregular rhythm, +S1, +S2 Pulses: PRESENT: normal carotid pulses Vascular exam: PRESENT: normal capillary refill GI/Abdominal exam: PRESENT: normal bowel sounds, soft Rectal exam: PRESENT: deferred Extremities exam: PRESENT: full ROM Musculoskeletal exam: PRESENT: full ROM Neurological exam: PRESENT: alert, altered, CN II-XII grossly intact Psychiatric exam: PRESENT: agitated, anxious Focused psych exam: PRESENT: restlessness Skin exam: PRESENT: dry, warm Results Laboratory Results: 12/18/16 04:19 12/18/16 04:19 12/18/16 12/18/16 04:19 04:19 WBC 18.1 H RBC 3.52 L Hgb 11.0 L Hct 33.6 L MCV 95 MCH 31.2 MCHC 32.8 RDW 14.0 Plt Count 235 Seg Neutrophils % Not Reportable Lymphocytes % Not Reportable Monocytes % Not Reportable Eosinophils % Not Reportable Basophils % Not Reportable Absolute Neutrophils Not Reportable Absolute Lymphocytes Not Reportable Absolute Monocytes Not Reportable Absolute Eosinophils Not Reportable Absolute Basophils Not Reportable Sodium 136.4 L Potassium 3.2 L Chloride 104 Carbon Dioxide 24 Anion Gap 8 BUN 42 H Creatinine 1.13 Est GFR ( Amer) > 60 Est GFR (Non-Af Amer) > 60 Glucose 73 L Calcium 12.5 H* 12/15/16 17:35 Catheterized Urine Urine Culture - Final NO GROWTH 2 DAYS Impressions: Chest X-Ray 12/15/16 13:31 IMPRESSION: There are chronic lung changes. A pneumonia cannot be ruled out in the right lower lobe. Assessment & Plan - Diagnosis (1) SIRS (systemic inflammatory response syndrome) Is this a current diagnosis for this admission?: YesPlan: Hypotension and tachycardia have resolved. Patient with right lower lobe pneumonia. 2 out of 2 blood cultures positive for Gm positive cocci. Vancomycin added (2) Fluid volume excess Qualifiers: Hypervolemia type: other Qualified Code(s): E87.79 - Other fluid overload Is this a current diagnosis for this admission?: YesPlan: Resolved (3) Acute and chronic respiratory failure with hypoxia Is this a current diagnosis for this admission?: YesPlan: Patient with oxygen SPO2 of 87% on 2l/min, increased to 4l/min with SPO2 95%. No hypercapnea noted on VBG. Will treat with IV antibiotics, nebulizer treatments and steroid (4) LISA (acute kidney injury) Is this a current diagnosis for this admission?: YesPlan: Acute kidney injury most likely secondary to dehydration and prerenal hypovolemia.Improved will IV hydration (5) Atrial fibrillation Qualifiers: Atrial fibrillation type: paroxysmal Qualified Code(s): I48.0 - Paroxysmal atrial fibrillation Is this a current diagnosis for this admission?: YesPlan: Patient with an INR of 6.4 at the present time on warfarin. He was given vitamin K p.o. by the ED physician. We will continue to hold Coumadin and allow his INR to drift downward. He presently is normal sinus rhythm 70s-80s. (6) Severe protein-calorie malnutrition Is this a current diagnosis for this admission?: YesPlan: Regular diet with protein supplements. Patient has refused to eat despite appetite stimulants by PCP. (7) Pneumonia Qualifiers: Pneumonia type: aspiration pneumonia Aspiration pneumonia type: unspecified Laterality: right Lung location: lower lobe of lung Qualified Code(s): J69.0 - Pneumonitis due to inhalation of food and vomit Is this a current diagnosis for this admission?: YesPlan: Broad spectrum antibiotics. Blood cultures 2 out of 2 sets positive for gram positive cocci (8) COPD (chronic obstructive pulmonary disease) Qualifiers: COPD type: COPD with acute exacerbation Qualified Code(s): J44.1 - Chronic obstructive pulmonary disease with (acute) exacerbation Is this a current diagnosis for this admission?: YesPlan: Nebulizer, IV steroids and abx (9) Goals of care, counseling/discussion Is this a current diagnosis for this admission?: YesPlan: Discussed with daughter and son in law goals of care for patient. They wish DNR , possible comfort care should his condition decline further and intermediate placement (10) Hypercalcemia Is this a current diagnosis for this admission?: YesPlan: Calcitonin given. Most likely secondary to malnutrition and weight loss - Time Time Spent with patient: 25-34 minutes Critical Time spent with patient: 15-24 minutes Medications reviewed and adjusted accordingly: Yes Anticipated discharge: SNF
[2016-12-18] MEDS: DILTIAZEM HCL 120 MG CAP.SR.24H PO SCH (17:47)
[2016-12-19] MEDS: VANCOMYCIN HCL 750 MG in DEXTROSE 5%-WATER 250 ML IV SCH ×2 (00:01→21:53)
[2016-12-19] MEDS: MIRTAZAPINE 15 MG TABLET PO SCH ×2 (00:01→21:10)
[2016-12-19] MEDS: WARFARIN SODIUM 2 MG TABLET PO SCH ×2 (00:02→21:11)
[2016-12-19] MEDS: FAMOTIDINE 20 MG TABLET PO SCH ×3 (00:02→21:11)
[2016-12-19] MEDS: GUAIFENESIN 600 MG TABLET.SA PO SCH ×3 (00:03→21:10)
[2016-12-19] MEDS: HALOPERIDOL LACTATE INJ 5 MG/1 ML VIAL IV PRN (01:41)
[2016-12-19] MEDS: CEFEPIME HCL 2 GM in DEXTROSE 5%-WATER 50 ML IV SCH (05:23)
[2016-12-19] MEDS: IPRATROPIUM/ALBUTEROL 0.5-2.5 MG/3 ML AMPUL NEB SCH ×3 (08:09→23:49)
--- NOTE | 2016-12-19 09:45 | PDOC PROGRESS REPORT ---
Subjective Progress Note for:: 12/19/16 Subjective:: Patient is seen on morning rounds. He is presently disoriented x 3. He is not hypoxic or febrile. He has a congested cough still. He pulled his IV out last night and nursing had a hard time replacing. He is not able to complete a review of systems due to his mentation. Physical Exam Vital Signs: Temp Pulse Resp BP Pulse Ox 97.5 F 82 18 116/75 92 12/19/16 00:12 12/19/16 00:12 12/19/16 00:12 12/19/16 00:12 12/19/16 00:12 Intake & Output 12/18/16 12/19/16 12/20/16 06:59 06:59 06:59 Intake Total 2349 950 Balance 2349 950 Weight 52.7 kg General appearance: PRESENT: no acute distress, thin, well-developed Head exam: PRESENT: atraumatic, normocephalic Eye exam: PRESENT: conjunctiva pale Ear exam: PRESENT: normal external ear exam Mouth exam: PRESENT: moist, tongue midline Teeth exam: PRESENT: edentulous Neck exam: ABSENT: carotid bruit, JVD, lymphadenopathy, thyromegaly Respiratory exam: PRESENT: crackles, symmetrical, unlabored - right base Cardiovascular exam: PRESENT: RRR. ABSENT: diastolic murmur, rubs, systolic murmur Pulses: PRESENT: normal dorsalis pedis pul Vascular exam: PRESENT: normal capillary refill GI/Abdominal exam: PRESENT: normal bowel sounds, soft. ABSENT: distended, guarding, mass, organolmegaly, rebound, tenderness Rectal exam: PRESENT: deferred Extremities exam: PRESENT: full ROM. ABSENT: calf tenderness, clubbing, pedal edema Musculoskeletal exam: PRESENT: full ROM Neurological exam: PRESENT: alert, altered, CN II-XII grossly intact Psychiatric exam: PRESENT: agitated Focused psych exam: PRESENT: restlessness Skin exam: PRESENT: skin tears Results Laboratory Results: 12/18/16 04:19 12/18/16 04:19 Impressions: Chest X-Ray 12/15/16 13:31 IMPRESSION: There are chronic lung changes. A pneumonia cannot be ruled out in the right lower lobe. Assessment & Plan - Diagnosis (1) Pneumonia Qualifiers: Pneumonia type: aspiration pneumonia Aspiration pneumonia type: unspecified Laterality: right Lung location: lower lobe of lung Qualified Code(s): J69.0 - Pneumonitis due to inhalation of food and vomit Is this a current diagnosis for this admission?: YesPlan: Broad spectrum antibiotics. Blood cultures 2 out of 2 sets positive for gram positive cocci (2) MRSA bacteremia Is this a current diagnosis for this admission?: YesPlan: Continue IV vancomycin until family makes decision regarding hospice (3) SIRS (systemic inflammatory response syndrome) Is this a current diagnosis for this admission?: YesPlan: Hypotension and tachycardia have resolved. Patient with right lower lobe pneumonia. 2 out of 2 blood cultures positive for Gm positive cocci. Vancomycin added (4) Fluid volume excess Qualifiers: Hypervolemia type: other Qualified Code(s): E87.79 - Other fluid overload Is this a current diagnosis for this admission?: YesPlan: Resolved (5) Acute and chronic respiratory failure with hypoxia Is this a current diagnosis for this admission?: YesPlan: Patient with oxygen SPO2 of 87% on 2l/min, increased to 4l/min with SPO2 95%. No hypercapnea noted on VBG. Will treat with IV antibiotics, nebulizer treatments and steroid (6) LISA (acute kidney injury) Is this a current diagnosis for this admission?: YesPlan: Acute kidney injury most likely secondary to dehydration and prerenal hypovolemia.Improved will IV hydration (7) Atrial fibrillation Qualifiers: Atrial fibrillation type: paroxysmal Qualified Code(s): I48.0 - Paroxysmal atrial fibrillation Is this a current diagnosis for this admission?: YesPlan: Patient with an INR of 6.4 at the present time on warfarin. He was given vitamin K p.o. by the ED physician. We will continue to hold Coumadin and allow his INR to drift downward. He presently is normal sinus rhythm 70s-80s. (8) Severe protein-calorie malnutrition Is this a current diagnosis for this admission?: YesPlan: Regular diet with protein supplements. Patient has refused to eat despite appetite stimulants by PCP. (9) COPD (chronic obstructive pulmonary disease) Qualifiers: COPD type: COPD with acute exacerbation Qualified Code(s): J44.1 - Chronic obstructive pulmonary disease with (acute) exacerbation Is this a current diagnosis for this admission?: YesPlan: Nebulizer, IV steroids and abx (10) Goals of care, counseling/discussion Is this a current diagnosis for this admission?: YesPlan: Discussed with daughter and son in law goals of care for patient. They wish DNR , possible comfort care should his condition decline further and long-term placement (11) Hypercalcemia Is this a current diagnosis for this admission?: YesPlan: Calcitonin given. Most likely secondary to malnutrition and weight loss - Time Time Spent with patient: 25-34 minutes Critical Time spent with patient: 15-24 minutes Medications reviewed and adjusted accordingly: Yes Anticipated discharge: Hospice
[2016-12-19] MEDS: TAMSULOSIN HCL 0.4 MG CAP.SR.24H PO SCH (11:04)
[2016-12-19] MEDS: DIGOXIN 0.125 MG TABLET PO SCH (11:04)
[2016-12-19] MEDS: RISPERIDONE 1 MG TABLET PO SCH ×2 (11:04→17:51)
[2016-12-19] MEDS: MAGNESIUM OXIDE 400 MG TABLET PO SCH (11:04)
[2016-12-19] MEDS: FINASTERIDE 5 MG TABLET PO SCH (11:05)
[2016-12-19] MEDS: MEGESTROL ACETATE SUSP 400 MG/10 ML UDCUP PO SCH (11:05)
[2016-12-19] MEDS: LEVOTHYROXINE SODIUM 0.1 MG TABLET PO SCH (11:05)
[2016-12-19] MEDS: LEVOTHYROXINE SODIUM 0.025 MG TABLET PO SCH (11:05)
[2016-12-19] MEDS ORDERED: CLINDAMYCIN HCL 150 MG CAPSULE PO SCH (12:00)
[2016-12-19] MEDS ORDERED: LIDOCAINE 5% (700 MG) TRANSDERMAL ADH..PATCH TP ONE (17:00)
[2016-12-19] MEDS: DILTIAZEM HCL 120 MG CAP.SR.24H PO SCH (17:52)
[2016-12-20 05:39] LABS: ANION GAP 10 (5-19); BLOOD UREA NITROGEN 30 mg/dL (7-20); CARBON DIOXIDE 24 mmol/L (22-30); CHLORIDE 112 mmol/L (98-107); CREATININE RESULT 1.26 mg/dL (0.52-1.25); GLUCOSE 88 mg/dL (75-110); POTASSIUM 3.5 mmol/L (3.6-5.0); SODIUM 145.7 mmol/L (137-145)
[2016-12-20 05:49] LABS: CALCIUM 12.7 mg/dL (8.4-10.2)
[2016-12-20 05:57] LABS: HEMATOCRIT 35.3 % (37.9-51.0); HGB HCT DIFFERENCE 0.7; MEAN CORPUSCULAR HEMOGLOBIN 32.2 pg (27.0-33.4); MEAN CORPUSCULAR HGB CONC 34.1 g/dL (32.0-36.0); MEAN CORPUSCULAR VOLUME 95 fl (80-97); RED BLOOD COUNT 3.73 10^6/uL (4.35-5.55); RED CELL DISTRIBUTION WIDTH 14.3 % (11.5-14.0); WHITE BLOOD COUNT 20.2 10^3/uL (4.0-10.5)
[2016-12-20 06:14] LABS: BASOPHILS % (MANUAL) 0 % (0-2); EOSINOPHILS % (MANUAL) 0 % (0-6); LYMPHOCYTES % (MANUAL) 9 % (13-45); TOTAL CELLS COUNTED 100; TOXIC GRANULATION SLIGHT
[2016-12-20 06:15] LABS: OVALOCYTES SLIGHT; POIKILOCYTOSIS SLIGHT; SCHISTOCYTES SLIGHT
[2016-12-20 06:16] LABS: ANISOCYTOSIS SLIGHT; ROULEAUX SLIGHT
[2016-12-20] MEDS: IPRATROPIUM/ALBUTEROL 0.5-2.5 MG/3 ML AMPUL NEB SCH (07:26)
[2016-12-20] MEDS ORDERED: MORPHINE SULFATE 10 MG/ML INJ IV ONE (10:05)
[2016-12-20] MEDS ORDERED: ALBUTEROL SULFATE 0.042% NEB (1.25 MG/3 ML) AMPUL NEB PRN (10:06)
[2016-12-20] MEDS: RISPERIDONE 1 MG TABLET PO SCH ×2 (14:22→19:16)
[2016-12-20] MEDS: GUAIFENESIN 600 MG TABLET.SA PO SCH ×2 (14:22→21:05)
[2016-12-20] MEDS: DIGOXIN 0.125 MG TABLET PO SCH (15:59)
[2016-12-20] MEDS: LEVOTHYROXINE SODIUM 0.1 MG TABLET PO SCH (16:05)
[2016-12-20] MEDS: FAMOTIDINE 20 MG TABLET PO SCH ×2 (16:05→21:05)
[2016-12-20] MEDS: TAMSULOSIN HCL 0.4 MG CAP.SR.24H PO SCH (16:05)
[2016-12-20] MEDS: LEVOTHYROXINE SODIUM 0.025 MG TABLET PO SCH (16:05)
[2016-12-20] MEDS: MEGESTROL ACETATE SUSP 400 MG/10 ML UDCUP PO SCH (16:05)
[2016-12-20] MEDS: MAGNESIUM OXIDE 400 MG TABLET PO SCH (16:05)
[2016-12-20] MEDS: FINASTERIDE 5 MG TABLET PO SCH (16:05)
--- NOTE | 2016-12-20 17:28 | PROGRESS NOTE E ---
Progress Note NAME: CORY MILIAN : 1935 AGE: 81Y DATE: 12/20/2016 ROOM: 408 SUBJECTIVE: The patient is lying in bed. He is nonresponsive. The patient has flinched and grimaced but is not responsive to any verbal stimuli. I have spoke with the senior case manager, and the patient has been evaluated for hospice; however, felt he was not acute enough for the [facility]. I have asked for this to be re-evaluated given the patient's change in status. According to nursing staff, the patient has not had any oral intake throughout the week, and he has continued to decompensate. There have been no reported episodes of vomiting nor diarrhea, and the patient is unable to voice any concerns at this time. REVIEW OF SYSTEMS: Unable to be appreciated given the patient's mental status. MEDICATIONS: Medications have been reviewed. OBJECTIVE: GENERAL: The patient is an 81-year-old male who is nonresponsive at this time. He does not appear to be in any acute distress though. VITAL SIGNS: As follows: Temperature is 97.5, pulse rate 60, respirations 21, blood pressure is 140/88, oxygen saturation 99% on 2 liters nasal cannula. SKIN: Pale, cool. No rash. He is not diaphoretic. HEENT: Pupils are sluggish but reactive. There are no mouth lesions. Tongue is midline. NECK: Supple. CARDIOVASCULAR SYSTEM: Heart is regular. There is no murmur or rub. CHEST: Rhonchorous breath sounds are noted in the upper lung cuh, symmetrical, unlabored. ABDOMEN: Soft, nontender, nondistended. BACK: No CVA tenderness, sacral edema. EXTREMITIES: No clubbing, cyanosis, edema. PSYCHIATRIC: Unable to be fully assessed. NEUROLOGICAL: Unable to assess. DIAGNOSTICS: Lab values are as follows: Hematology obtained on 12/20/2016; WBCs are 20.2, hemoglobin is 12.0, hematocrit 35.3, platelet count is 238,000. Coagulation done on 12/19/2016: PT is 25.0, INR is 2.14. Chemistry obtained on 12/20/2016: Sodium is, potassium is 4.5, chloride is 112, carbon dioxide 24, BUN 30, creatinine is 0.26, glucose 88, calcium is 12.7. Blood cultures obtained on 12/15/2016 reveals MRSA. Urine culture obtained on 12/15/2016 revealed no growth. IMPRESSION AND PLAN: 1. MRSA BACTEREMIA. The patient continues on vancomycin. Uncertain of the exact underlying etiology of this. The patient has no open areas. Will continue to treat and repeat blood cultures and follow. 2. PNEUMONIA. Will continue antibiotic coverage. 3. SEPSIS SECONDARY TO NUMBERS 1 AND 2. Hypotension and tachycardia have resolved; however, the patient's mental status continues to decline. No oral intake. I feel the patient may have an overwhelming sepsis. 4. ACUTE ON CHRONIC HYPOXEMIC RESPIRATORY FAILURE. Will continue oxygen supplementation and follow. 5. ACUTE KIDNEY INJURY, MOST LIKELY DUE TO DEHYDRATION AND PRERENAL AZOTEMIA. This is improved with hydration, however, creatinine has bumped back up. Will continue to hydrate. 6. ATRIAL FIBRILLATION. This is paroxysmal. The patient is currently in sinus rhythm. Will follow. 7. SEVERE PROTEIN CALORIE MALNOURISHMENT. Continue to encourage oral intake, although the patient has refused. 8. COPD. Will continue nebulizers, steroids, antibiotics. 9. HYPERCALCEMIA. The patient has been given calcitonin. Most likely due to malnutrition and weight loss. 10. GOALS OF CARE. The patient has been evaluated for hospice. It was felt not to be acute enough at that time. However, the patient has continued to decline over the weekend. Will once again re-consult Hospice for inpatient placement as this was the family's desire. DISPOSITION: The patient is a DO NOT RESUSCITATE/DO NOT INTUBATE. Pending patient's symptomatology and diagnostic findings, will re-evaluate as needed. Time spent on this followup including assessment, plan, physical examination and attempted patient education, review of records is 30 minutes. DICTATING PHYSICIAN: EMMETT MCKEON NP [id number] PHY#: [id number] ID: [id number] JOB#: [id number] ACCT: [id number] cc:EMMETT MCKEON NP > [facility]
[2016-12-20] MEDS: DILTIAZEM HCL 120 MG CAP.SR.24H PO SCH (19:16)
[2016-12-20] MEDS: MIRTAZAPINE 15 MG TABLET PO SCH (21:05)
[2016-12-20] MEDS: WARFARIN SODIUM 2 MG TABLET PO SCH (21:05)
[2016-12-20] MEDS: VANCOMYCIN HCL 750 MG in DEXTROSE 5%-WATER 250 ML IV SCH (21:33)
[2016-12-21] MEDS: DIGOXIN 0.125 MG TABLET PO SCH (09:45)
[2016-12-21] MEDS: GUAIFENESIN 600 MG TABLET.SA PO SCH (09:51)
[2016-12-21] MEDS: FINASTERIDE 5 MG TABLET PO SCH (09:54)
[2016-12-21] MEDS: TAMSULOSIN HCL 0.4 MG CAP.SR.24H PO SCH (09:54)
[2016-12-21] MEDS: FAMOTIDINE 20 MG TABLET PO SCH (09:54)
[2016-12-21] MEDS: RISPERIDONE 1 MG TABLET PO SCH ×2 (09:54→18:06)
[2016-12-21] MEDS: MEGESTROL ACETATE SUSP 400 MG/10 ML UDCUP PO SCH (09:54)
[2016-12-21] MEDS: LEVOTHYROXINE SODIUM 0.025 MG TABLET PO SCH (09:54)
[2016-12-21] MEDS: LEVOTHYROXINE SODIUM 0.1 MG TABLET PO SCH (09:54)
[2016-12-21] MEDS: MAGNESIUM OXIDE 400 MG TABLET PO SCH (09:54)
--- NOTE | 2016-12-21 16:50 | TRANSFER SUMMARY E ---
Transfer Summary NAME: CORY MILIAN : 1935 AGE: 81Y ADMITTED: 12/15/2016 TRANSFERRED: 12/21/2016 CODE STATUS: DO NOT RESUSCITATE/DO NOT INTUBATE. RECEIVING FACILITY: [facility]. DISCHARGE DIAGNOSES: 1. Pneumonia. 2. Methicillin-resistant Staphylococcus aureus bacteremia. 3. Sepsis secondary to numbers 1 and 2. 4. Jwnbm-on-qexewys hypoxemic respiratory failure. 5. Acute kidney injury. 6. Atrial fibrillation. 7. Hypercalcemia. 8. Severe protein-calorie malnourishment. 9. Chronic obstructive pulmonary disease. 10. [id number]. DISCHARGE MEDICATIONS: As per hospice. DIET: As per hospice. ACTIVITY: As per hospice. DIAGNOSTICS: Lab values are as follows: Hematology obtained on 12/20/2016: WBC 20.2, hemoglobin 12.0, hematocrit 35.3, platelet count 238,000. Coagulation obtained on 12/19/2016: PT is 25.0, INR is 2.14. VBG obtained on 12/15/2016 - pH 7.46, pCO2 is 44.2, bicarb is 30.8. Chemistry obtained on 12/20/2016: Sodium 145, potassium 2.5, chloride 112, carbon dioxide 24, BUN 30, creatinine 0.26, glucose 88, calcium 12.7, lactic acid 2.7, albumin 2.8, total protein 5.7, albumin 137, AST 25, ALT 31, total bilirubin 0.7. Urinalysis obtained on 12/15/2016: Color yellow, appearance slightly cloudy, pH of 6.0, specific gravity is 1.010, protein negative, glucose negative, ketones negative, occult blood negative, nitrate negative, bilirubin negative, urobilinogen negative, leukocyte esterase is moderate, wbc's 64, rbc's 2, casts 4, bacteria trace, mucus rare, ascorbic acid negative. Microbiology obtained on 12/15/2016: Both blood cultures reveal MRSA. Urine culture obtained on 12/19/2016 reveals no growth. Chest x-ray obtained on 12/15/2016 reveals chronic lung changes, possible right lower lobe pneumonia. HISTORY OF PRESENT ILLNESS: The patient is an 81-year-old male with a past medical history of COPD and atrial fibrillation. The patient presented to the emergency department with a chief complaint of shortness of breath and worsening dyspnea. The patient arrived via EMS. The patient's history, according to the daughter, revealed that the patient was an oxygen-dependent COPD patient and has severe caloric malnutrition due to [id number]. The patient apparently had moved here 2 months ago from [place] after his . The patient has stated numerous times that he felt he could not go on and wanted to join his . The patient had refused to eat or drink. The patient was seen by Dr. Brewer, who attempted Remeron to increase the patient's appetite, but had no effect. The patient over the past couple of weeks has become incontinent, as well as not participated in any ADLs. The patient was found to have evidence of pneumonia and was referred to the hospitalist for admission and management. HOSPITAL COURSE: Patient was admitted to the continuous telemetry unit and the patient was DNR/DNI. The patient was treated with broad spectrum antibiotic coverage, however, in spite of this the patient's white count continued to increase. The patient's blood cultures were positive for MRSA and the continued on vancomycin with no obvious effect. The patient did have waxing and waning symptoms, but overall refused to eat or drink. The patient's heart rate also remained labile, given that the patient was having minimal oral intake, including medications. The patient was seen and evaluated by hospice and was felt to be a candidate for such. The patient does have a bed available at [facility] this evening and patient and family are agreeable to this plan. PHYSICAL EXAMINATION: GENERAL: On examination, the patient is a frail, chronically ill-appearing, 81-year-old male, who would awaken and answer simple questions. He did not appear to be in acute distress. VITAL SIGNS FOLLOWS: Temperature is 97.4, pulse 71, respirations 20, blood pressure 131/92, oxygen saturation 96% on 3 liters nasal cannula. SKIN: Cool, dry, pale. No rash. He was not diaphoretic. HEENT: Pupils are sluggish, but reactive. Conjunctivae are pale. NECK: There is no JVP. CARDIOVASCULAR: Heart is irregularly irregular. No rub. CHEST: The patient does have coarse rhonchorous rattling breath sounds, especially in upper lung chu. ABDOMEN: Thin. No area of focal tenderness. BACK: No CVA tenderness or sacral edema. EXTREMITIES: No clubbing, cyanosis, edema. Multiple areas of pocketed third spacing and bruising noted. PSYCHIATRIC: Unable to fully assess. TRANSFER PLAN: The patient will be received to the services to [facility]. MEDICATIONS: As per the facility. TIME SPENT: Time spent on this discharge, including assessment, plan, physical examination, attempted patient education, and resource alignment is 35 minutes. DICTATING PHYSICIAN: EMMETT MCKEON NP [id number] PHY#: [id number] ID: [id number] JOB#: [id number] ACCT: [id number] cc:EMMETT MCKEON NP >
[2016-12-21] MEDS: DILTIAZEM HCL 120 MG CAP.SR.24H PO SCH (18:06)
[2016-12-21] MEDS: HALOPERIDOL LACTATE INJ 5 MG/1 ML VIAL IV PRN (20:17)
[2016-12-21 21:01] VITALS: BP 124/84
== END 2016-12-21 21:58 | disposition hospice, inpatient (51) | DRG 871 ==
LOC: ER 13:20 → EH 15:37 → UNDOADMIN 16:03 → EH 16:03 → 4N 16:48
PROVIDERS: ADMIT Internal Medicine; ATTEND Internal Medicine
DX: A41.02 Sepsis due to Methicillin resistant Staphylococcus aureus (principal); J18.9 Pneumonia, unspecified organism; J96.21 Acute and chronic respiratory failure with hypoxia; J44.1 Chronic obstructive pulmonary disease with (acute) exacerbation; N17.9 Acute kidney failure, unspecified; E43 Unspecified severe protein-calorie malnutrition; Z68.1 Body mass index [BMI] 19.9 or less, adult; I48.0 Paroxysmal atrial fibrillation; R62.7 Adult failure to thrive; E83.52 Hypercalcemia; E78.5 Hyperlipidemia, unspecified; K21.9 Gastro-esophageal reflux disease without esophagitis; Z87.891 Personal history of nicotine dependence; Z79.899 Other long term (current) drug therapy; Z66 Do not resuscitate
CPT/HCPCS: 36415; 71010; 80048; 80053; 80202; 81001; 82565; 82803; 82962; 83605; 85025; 85027; 85610; 87040; 87077; 87086; 87186; 93005; 93010; 94640; 99291; G8996-GN; G8997-GN; G8998-GN; J0630; J0692; J1630; J1940; J1956; J2270; J3370; J3490; J7030; J7060; J7620